=== PATIENT | female | born 1965 | race Caucasian/White ===

== ENCOUNTER 2022-04-21 05:16 | Emergency (ER) | payer OTHER ==
[~2022-04-21] VITALS: Ht 152.4 cm; Wt 104.0 kg
[2022-04-21] MEDS ORDERED: ACETAMINOPHEN 500 MG TAB (TYLENOL) PO ONE (05:30)
[2022-04-21] MEDS ORDERED: KETOROLAC 15 MG/ML VIAL IM ONE (05:30)
--- NOTE | 2022-04-21 05:30 | ED Fever ---
History of Present Illness General Stated Complaint: HEADACHE,BODY ACHE Source: patient Exam Limitations: no limitations History of Present Illness Date Seen by Provider: Apr 21, 2022 Time Seen by Provider: 05:21 Initial Comments 56-year-old female with no pertinent past medical history coming in due to fever, body aches, headache, cough, started yesterday. Has not taken any medicines for the pain or fever. Denies any chest pain, shortness of breath, abdominal pain, nausea, vomiting, diarrhea, weakness, numbness, rash, or any other concerns. Did not get a flu shot this year. Otherwise denying any other acute complaints. Allergies and Home Medications Allergies Coded Allergies: amoxicillin (Verified Allergy, Unknown, 04/21/22) clavulanic acid (Verified Allergy, Unknown, 04/21/22) Patient Home Medication List Home Medication List Reviewed: Yes Ondansetron (Ondansetron Odt) 4 Mg Tab.rapdis, 4 MG SL Q6H PRN for NAUSEA/VOMITING Prescribed by: CALLIE WHEELER on 04/21/22 0624 Review of Systems Review of Systems Constitutional: fever EENTM: no symptoms reported Respiratory: cough Cardiovascular: no symptoms reported Gastrointestinal: no symptoms reported Genitourinary: no symptoms reported Psychiatric/Neurological: Headache Hematologic/Lymphatic: No Symptoms Reported Immunological/Allergic: no symptoms reported All Other Systems Reviewed Negative Unless Noted: Yes Past Dkwhoob-Fhltcc-[place] Hx Patient Social History Tobacco Use?: No Substance use?: No Alcohol Use?: No Past Medical History Surgeries: Yes Section, Orthopedic Physical Exam Vital Signs - First Documented 04/21/22 05:20 Temp 39.3 Pulse 102 Resp 18 B/P (MAP) 219/103 (141) Pulse Ox 94 O2 Delivery Room Air Capillary Refill : Height: '" Weight: lbs. oz. kg; BMI Method: General Appearance: WD/WN, no apparent distress Eyes: Bilateral Eye Normal Inspection HEENT: PERRL/EOMI, normal ENT inspection, TMs normal, pharynx normal Neck: non-tender, full range of motion, supple, normal inspection Respiratory: chest non-tender, lungs clear, normal breath sounds, no respiratory distress, no accessory muscle use Cardiovascular: regular rate, rhythm, no edema, no murmur Gastrointestinal: normal bowel sounds, non tender, soft; No distended, No guarding, No rebound Extremities: normal range of motion, non-tender, normal inspection, no pedal edema, no calf tenderness, normal capillary refill Neurologic/Psychiatric: no motor/sensory deficits, alert, normal mood/affect, oriented x 3, other (No meningismus, normal gait) Skin: normal color, warm/dry Lymphatic: no adenopathy Progress/Results/Core Measures Suspected Sepsis SIRS Temperature: Pulse: Respiratory Rate: Blood Pressure / Mean: Results/Orders Lab Results Laboratory Tests Test 04/21/22 05:30 Range/Units Influenza Type A (RT-PCR) Detected H Not Detecte Influenza Type B (RT-PCR) Not Detected Not Detecte SARS-CoV-2 RNA (RT-PCR) Not Detected Not Detecte My Orders Orders - CALLIE WHEELER MD Influenza A And B By Pcr (04/21/22 05:27) Covid 19 Inhouse Test (04/21/22 05:27) Ketorolac Injection (Toradol Injection) (04/21/22 05:30) Acetaminophen Tablet (Tylenol Tablet) (04/21/22 05:30) Medications Given in ED Current Medications Medications Dose Ordered Sig/Bhavya Route Start Time Stop Time Status Last Admin Dose Admin Acetaminophen 1,000 mg ONCE ONCE PO 04/21/22 05:30 04/21/22 05:31 DC 04/21/22 05:46 1,000 MG Ketorolac Tromethamine 15 mg ONCE ONCE IM 04/21/22 05:30 04/21/22 05:31 DC 04/21/22 05:45 15 MG Vital Signs/I&O 04/21/22 04/21/22 05:20 05:46 Temp 39.3 39.0 Pulse 102 Resp 18 B/P (MAP) 219/103 (141) Pulse Ox 94 O2 Delivery Room Air Capillary Refill : Progress Note : Progress Note 56-year-old female with above history coming in due to multiple flulike symptoms including fever here. Vital signs otherwise unremarkable considering she has a fever. Swabbed for COVID and flu and was positive for influenza A. Given Tylenol and Toradol with improvement in symptoms. I believe she is stable for discharge with outpatient follow-up. She was sent home with strict return precautions. Tolerating p.o. prior to discharge Of note, when I was discharging patient and bringing up Tamiflu, she stated that she had a telehealth visit yesterday, and started Tamiflu already. She did forget to mention this while discussing her case earlier. Departure Impression Primary Impression: Influenza A Disposition: 01 HOME, SELF-CARE Condition: Stable Departure-Patient Inst. Decision time for Depature: 06:20 Referrals: [facility] Patient Instructions: Flu, Adult (DC) Add. Discharge Instructions: You do unfortunately have influenza A. Expect to have fever and body aches for 3 to 4 days. You can have other symptoms such as cough and general not feeling well for several weeks. Follow-up with your regular doctor if you are not improving in the next 1 to 2 weeks, if you do not have 1 you can call [facility] who is numbers listed in this paperwork. Scripts Ondansetron (Ondansetron Odt) 4 Mg Tab.rapdis 4 MG SL Q6H PRN for NAUSEA/VOMITING for 5 Days, #20 TAB Prov: CALLIE WHEELER MD 04/21/22 Work/School Note: Work Release Form Date Seen in the Emergency Department: Apr 21, 2022 Return to Work: Apr 22, 2022 Restrictions: No Restrictions CALLIE WHEELER MD Apr 21, 2022 05:30
[2022-04-21] MEDS ORDERED: ONDA4TAB11 SL (06:24)
[2022-04-21 06:25] VITALS: BP 219/103
== END 2022-04-21 06:26 | disposition home or self-care (01) ==
LOC: ER FS 05:19
DX: J10.1 Influenza due to other identified influenza virus with other respiratory manifestations (principal); Z20.822 Contact with and (suspected) exposure to COVID-19
CPT/HCPCS: 87636; 99284